=== PATIENT | female | born 1970 | race Caucasian/White ===

== ENCOUNTER 2020-03-08 17:44 | Emergency (ER) | payer OTHER, SELFPAY ==
--- NOTE | ~2020-03-08 | XR_ITS ---
EXAMINATION: XR foot LT min 3V DATE: 03/08/2020 18:25 INDICATION: Left foot pain. TECHNIQUE: 4 views of left foot were obtained. COMPARISON: None. FINDINGS: Bone alignment is normal. No fracture. There is mild osteoarthritis of talonavicular joint, first metatarsophalangeal joint, and second distal interphalangeal joint. IMPRESSION: 1. Mild polyarticular osteoarthritis. Reviewed, dictated and finalized at location A.
[2020-03-08 17:49] VITALS: BP 131/62; PULSE 74; RESP 24; TEMP 36.7; O2SAT 98
--- NOTE | 2020-03-08 18:14 | ED.GENADULT ---
HPI - General Adult General Chief complaint: Extremity Injury, Lower Stated complaint: left foot pain Time Seen by Provider: 03/08/20 18:14 Source: patient Mode of arrival: ambulatory Limitations: no limitations History of Present Illness HPI narrative: 42-year-old female patient presents to the [facility] with complaints of left foot pain on the sole that started this morning when she woke up. Patient states she went to bed last night just fine. Denies any injury to the foot that she is aware of. Patient states that she is on her feet a lot and does walk a lot. Patient states she went to go get up and states she could barely stand due to the pain. Patient states she has been taking Motrin for the pain. Related Data Home Medications Medication Instructions Recorded Confirmed amlodipine 03/08/20 aspirin 81 mg PO DAILY 03/08/20 03/08/20 citalopram mg 03/08/20 ergocalciferol (vitamin D2) 03/08/20 pravastatin 03/08/20 Allergies Allergy/AdvReac Type Severity Reaction Status Date / Time No Known Allergies Allergy Verified 03/08/20 18:06 Review of Systems Review of Systems: Narrative: CONSTITUTIONAL: Denies fever, chills, or sweats. EYES: Denies visual changes, redness, or discharge. ENT: Denies rhinorrhea, congestion, sore throat, or otalgia. CARDIOVASCULAR: Denies chest pain, palpitations, or edema. RESPIRATORY: Denies cough or dyspnea. GASTROINTESTINAL: Denies abdominal pain, nausea, vomiting, or diarrhea. GENITOURINARY: Denies dysuria or hematuria. SKIN: Denies rash or itching. MUSCULOSKELETAL: Denies back pain, joint pain, or myalgia. Positive left foot pain NEUROLOGIC: Denies headache, numbness, or weakness. PSYCHIATRIC: Denies anxiety or depression. PMFSH Comments At the time of my signature I agree with nursing past medical history, surgical, social, and family history. There is no relevant family history pertinent to the presenting complaint. Exam Narrative: Exam Narrative: GENERAL: Well-appearing, well-nourished, and in no acute distress. HEAD: Normocephalic, atraumatic. EYES: PERRLA and EOMI. ENT: Nares clear, no rhinorrhea or epistaxis. Mucous membranes moist. NECK: Supple. No lymphadenopathy CHEST: Clear to auscultation. No respiratory distress. HEART: Regular rate and rhythm. No murmur heard. Normal peripheral pulses. ABDOMEN: Soft, nontender, nondistended, normal active bowel sounds. EXTREMITIES: Patient able to bear weight and ambulate but complains of increasing pain to the left foot. No surface trauma, ecchymosis, erythema, lesions, ulcers or break in skin integrity. The L foot is without obvious asymmetry or deformity when compared to the R foot. No bony step-off, tender to palpation to the sole of the foot under the second and third metatarsals. No tenderness to the toes, midfoot or hindfoot. Normal plantar/dorsiflexion, inversion/eversion. Distal motor and neurovascular status are intact SKIN: Warm, dry, no rash. NEURO: No focal deficits. Alert and oriented x3. Course Reevaluation(s) Reevaluation #1: Reevaluated patient after her x-ray resulted. Discussed with her that her x-ray is negative for any acute fractures or hairline fractures. Discussed with her that I think this is most likely the plantar fasciitis that is causing her pain. Discussed with her I will send her home some exercises to do to help stretch out the ligaments and tendons the area as well as some pain medicine to help with the pain. Discussed with her we will go ahead and wrap the foot with an Norm wrap. Discussed with her she can also do some warm Epson salts that she needs to be getting good supportive footwear to wear when she walks and stands. Patient verbalized understanding denies any other questions or concerns at this time. Date: 03/08/20 Time: 18:37 Vital Signs Vital signs: Vital Signs Temperature 36.7 C 03/08/20 17:49 Pulse Rate 74 03/08/20 17:49 Respiratory Rate 24 H 03/08/20 17:49 Blood Pressure 1
--- NOTE | 2020-03-08 18:29 | PC.NURSE ---
PT TAKEN TO RADIOLOGY IN WHEELCHAIR
== END 2020-03-08 18:40 | disposition home or self-care (01) ==
PROVIDERS: Emergency Provider Nurse Practitioner Family; PCP Family Medicine
DX: M72.2 Plantar fascial fibromatosis (principal); I10 Essential (primary) hypertension
CPT/HCPCS: 73630; 99213; G0463

== ENCOUNTER 2020-05-25 08:26 | Emergency (ER) | payer OTHER, SELFPAY ==
[2020-05-25 08:38] VITALS: BP 115/82; PULSE 67; RESP 20; TEMP 36.4; O2SAT 100
--- NOTE | 2020-05-25 08:40 | ED.GENADULT ---
HPI - General Adult General Chief complaint: Dental/Oral Stated complaint: Dental Time Seen by Provider: 05/25/20 08:40 Source: patient Mode of arrival: ambulatory Limitations: no limitations History of Present Illness HPI narrative: 49-year-old female patient presents to the [facility] with complaints of left upper dental pain x1 week. Patient states she has had issues with her teeth before and has had several teeth removed due to infection and decay. Patient states she has been told that she needs to see an oral surgeon to get this tooth removed. Denies any fevers, body aches or chills. Denies any swelling to the cheek. Patient states she has been taking some ibuprofen at home which has not really helped much. Patient does take naproxen 500 mg just once a day for her back. Related Data Home Medications Medication Instructions Recorded Confirmed amlodipine 5 mg PO DAILY 03/08/20 05/25/20 aspirin 81 mg PO DAILY 03/08/20 05/25/20 citalopram 30 mg PO DAILY 03/08/20 05/25/20 ergocalciferol (vitamin D2) 03/08/20 pravastatin 40 mg PO DAILY 03/08/20 05/25/20 Allergies Allergy/AdvReac Type Severity Reaction Status Date / Time No Known Allergies Allergy Verified 05/25/20 08:56 Review of Systems Review of Systems: Narrative: CONSTITUTIONAL: Denies fever, chills, or sweats. EYES: Denies visual changes, redness, or discharge. ENT: Denies rhinorrhea, congestion, sore throat, or otalgia. Positive left upper dental pain x1 week CARDIOVASCULAR: Denies chest pain, palpitations, or edema. RESPIRATORY: Denies cough or dyspnea. GASTROINTESTINAL: Denies abdominal pain, nausea, vomiting, or diarrhea. GENITOURINARY: Denies dysuria or hematuria. SKIN: Denies rash or itching. MUSCULOSKELETAL: Denies back pain, joint pain, or myalgia. NEUROLOGIC: Denies headache, numbness, or weakness. PSYCHIATRIC: Denies anxiety or depression. PMFSH Comments At the time of my signature I agree with nursing past medical history, surgical, social, and family history. There is no relevant family history pertinent to the presenting complaint. Exam Narrative: Exam Narrative: GENERAL: Well-appearing, well-nourished, and in no acute distress. HEAD: Normocephalic, atraumatic. EYES: PERRLA and EOMI. ENT: Nares clear, no rhinorrhea or epistaxis. Mucous membranes moist. No obvious swelling noted to the left cheek. The oral cavity does have some erythema and tenderness above the left upper canine. There is some obvious dental caries noted. No obvious abscesses palpated. NECK: Supple. No lymphadenopathy CHEST: Clear to auscultation. No respiratory distress. HEART: Regular rate and rhythm. No murmur heard. Normal peripheral pulses. ABDOMEN: Soft, nontender, nondistended, normal active bowel sounds. EXTREMITIES: Normal range of motion. No edema. SKIN: Warm, dry, no rash. NEURO: No focal deficits. Alert and oriented x3. Course Vital Signs Vital signs: Vital Signs Temperature 36.4 C 05/25/20 08:38 Pulse Rate 67 05/25/20 08:38 Respiratory Rate 20 05/25/20 08:38 Blood Pressure 115/82 05/25/20 08:38 Pulse Oximetry 100 05/25/20 08:38 Temperature 36.4 C 05/25/20 08:38 Pulse Rate 67 05/25/20 08:38 Respiratory Rate 20 05/25/20 08:38 Blood Pressure 115/82 05/25/20 08:38 Pulse Oximetry 100 05/25/20 08:38 Vital signs reviewed Medical Decision Making Differential Diagnosis Differential Diagnosis: Differential diagnosis: Dental caries, periodontal disease, avulsed tooth, tooth infections, mandibular infection, Christopher's angiana, upper tooth infection, dry socket, gingivitis, acute necrotizing ulcerative gingivitis, sialolithiasis. Discussed with patient that we will go ahead and give her an antibiotic for the dental infection and I highly recommend that she follow-up with a dentist to have the tooth removed. Discussed with patient that I will also give her some naproxen to help with the pain that she can take twice a day since
[2020-05-25] MEDS: IBUPROFEN 400 MG TABLET 800 MG PO (09:20)
== END 2020-05-25 09:25 | disposition home or self-care (01) ==
PROVIDERS: Emergency Provider Nurse Practitioner Family; PCP Family Medicine
DX: K04.7 Periapical abscess without sinus (principal); K02.9 Dental caries, unspecified; E78.00 Pure hypercholesterolemia, unspecified; I10 Essential (primary) hypertension; M79.7 Fibromyalgia; F41.9 Anxiety disorder, unspecified; F32.9 Major depressive disorder, single episode, unspecified
CPT/HCPCS: 99213; A9270; G0463

== ENCOUNTER 2023-02-24 14:51 | Emergency (ER) | payer OTHER, SELFPAY ==
[2023-02-24 15:01] VITALS: BP 105/78; PULSE 69; RESP 16; TEMP 36.6; O2SAT 99
--- NOTE | 2023-02-24 15:12 | ED.SKABFB ---
HPI - Skin/Abscess/Foreign Bdy General Chief complaint: Dental/Oral Stated complaint: Lip Swelling/Mouth Sore Time Seen by Provider: 02/24/23 15:12 Source: patient Mode of arrival: ambulatory Limitations: no limitations History of Present Illness HPI narrative: 52-year-old female presents with complaint of lower lip pain and swelling starting this morning. Reports recent facial sunburn. Patient states that she had been picking on peeling skin from lip from sunburn and is now concerned that she has infection. Afebrile. All systems reviewed and negative except as noted above. Related Data Home Medications Medication Instructions Recorded Confirmed amlodipine 5 mg tablet 5 mg PO DAILY 03/08/20 02/24/23 aspirin 81 mg tablet,delayed 81 mg PO DAILY 03/08/20 02/24/23 release pravastatin 40 mg tablet 40 mg PO DAILY 03/08/20 02/24/23 Allergies Allergy/AdvReac Type Severity Reaction Status Date / Time No Known Allergies Allergy Verified 02/24/23 15:09 Review of Systems Review of Systems: CONSTITUTIONAL: Denies fever, chills, or sweats. EYES: Denies visual changes, redness, or discharge. ENT: Denies rhinorrhea, congestion, sore throat, or otalgia. CARDIOVASCULAR: Denies chest pain, palpitations, or edema. RESPIRATORY: Denies cough or dyspnea. GASTROINTESTINAL: Denies abdominal pain, nausea, vomiting, or diarrhea. GENITOURINARY: Denies dysuria or hematuria. SKIN: Reports swelling, pain to lower lip. MUSCULOSKELETAL: Denies back pain, joint pain, or myalgia. NEUROLOGIC: Denies headache, numbness, or weakness. PSYCHIATRIC: Denies anxiety or depression. All other systems reviewed are negative, except as documented in HPI. PMFSH Comments At time of signature, agree with nursing past medical, surgical, social and family history. There is no relevant family history pertinent to the presenting complaint. Exam Narrative: GENERAL: This is a well-nourished, well-developed patient, in no apparent distress. HEAD: normocephalic, atraumatic. EYES: PERRL. Sclera clear/white. Vision is grossly intact. EARS: External ears normal, auditory canals clear and without drainage, TMs normal without perforation. Hearing grossly intact. NOSE: External nose normal with no obvious nasal discharge, nares without redness, no rhinorrhea. THROAT: Mucous membranes moist, posterior pharynx clear. NECK: Neck supple, non-tender without lymphadenopathy, masses or thyromegaly. CARDIOVASCULAR: Regular rate and rhythm without murmurs, gallops, or rubs. RESPIRATORY: Clear to auscultation. Breath sounds equal bilaterally. No wheezes, rales, or rhonchi. SKIN: warm, Dry, intact with no suspicious lesions or rash, good texture and turgor. Patient's lower lip is mildly swollen with tenderness on palpation. No significant erythema. Scabbing and peeling skin from recent sunburn. NEURO: awake, alert, and oriented to person, place and time. There were no obvious focal neurologic abnormalities. EXTREMITIES: No joint tenderness, effusion, or edema noted. Course Course Level of Care: Express Care Visit Vital Signs Vital signs: Vital Signs Temperature 36.6 C 02/24/23 15:01 Pulse Rate 69 02/24/23 15:01 Respiratory Rate 16 02/24/23 15:01 Blood Pressure 105/78 02/24/23 15:01 Pulse Oximetry 99 02/24/23 15:01 Oxygen Delivery Room Air 02/24/23 15:01 Temperature 36.6 C 02/24/23 15:01 Pulse Rate 69 02/24/23 15:01 Respiratory Rate 16 02/24/23 15:01 Blood Pressure 105/78 02/24/23 15:01 Pulse Oximetry 99 02/24/23 15:01 Oxygen Delivery Room Air 02/24/23 15:01 Reviewed MDM - Skin/Abscess/Foreign Bdy MDM Narrative Medical decision making narrative: Patient is aware of diagnosis, understands and agrees to treatment plan. Anticipatory guidance given. Patient agrees to follow-up as directed and is aware of reasons to seek care at the emergency department. Portions of this record may have been created with voice re
== END 2023-02-24 15:32 | disposition home or self-care (01) ==
PROVIDERS: Emergency Provider Nurse Practitioner Family; PCP Family Medicine
DX: S00.521A Blister (nonthermal) of lip, initial encounter (principal); L08.9 Local infection of the skin and subcutaneous tissue, unspecified; X32.XXXA Exposure to sunlight, initial encounter; E78.00 Pure hypercholesterolemia, unspecified; I10 Essential (primary) hypertension; M79.7 Fibromyalgia; Z79.82 Long term (current) use of aspirin
CPT/HCPCS: 99213; G0463